=== PATIENT | male | born 1945 | race Two or more races ===

== ENCOUNTER 2020-07-16 13:00 | Outpatient (CLI) | payer MEDICARE, OTHER ==
[~2020-07-16] VITALS: Ht 160 cm; Wt 70.8 kg
[2020-07-16 12:52] VITALS: BP 126/71
--- NOTE | 2020-07-16 14:14 | Consultation ---
DATE OF CONSULTATION: 07/16/2020 GASTROENTEROLOGY CONSULTATION CONSULTING PHYSICIAN: Gomez Bee MD. CHIEF COMPLAINT: Abdominal pain. HISTORY OF PRESENT ILLNESS: This is a very pleasant 75-year-old male, who was referred to us by Dr. Barrett, for evaluation of abdominal pain. According to the family, the patient was recently diagnosed with kind of colorectal cancer, was getting and was referred today. I cannot see any records of cancer in my chart. The patient was admitted to [facility] in April 2020, which we got a clear copy of it when the patient was admitted for chest pain, diarrhea, cough, and abdominal pain. He had a CT of the abdomen and pelvis done at that time showed evidence of hiatal hernia, but no evidence of any active cause for abdominal pain. PAST MEDICAL HISTORY: Significant for: 1. History of hyperlipidemia. 2. Questionable diagnosis of colorectal cancer for which he is getting radiation now. ALLERGIES: No known drug allergies. MEDICATIONS: Please see medication reconciliation list. SOCIAL HISTORY: The patient denies any recent tobacco, alcohol, or drug abuse. FAMILY HISTORY: Noncontributory. PHYSICAL EXAMINATION: VITAL SIGNS: Temperature is 98.2, blood pressure is 122/71, pulse , respirations 20. HEENT: Normocephalic and atraumatic. Sclerae anicteric. NECK: Supple. No evidence of obvious lymphadenopathy. CARDIOVASCULAR: Regular rate and rhythm. Plus S1, S2. LUNGS: Clear to auscultation bilaterally. ABDOMEN: Positive bowel sounds. Soft and nontender. No rebound. No guarding. No peritoneal sign. EXTREMITIES: No cyanosis, no clubbing, no edema. ASSESSMENT AND PLAN: This is a 75-year-old male with complaint of epigastric/right upper quadrant abdominal pain, some mild constipation, going for radiation for possible colorectal cancer by Dr. Barrett. Plan will be to start the patient on omeprazole 40 mg p.o. every morning and also MiraLAX 17 g at bedtime. The patient to complete the radiation and come back for further followup. Meanwhile, we are going to try to obtain records from Dr. Barrett's office to see the exact type of cancer he is having. CT was reviewed. There is no acute finding in terms of possible epigastric abdominal pain, except for hiatal hernia. The patient was seen by the family at the bedside and the plans were explained to them. I want to thank Dr. Chantel Barrett, for this kind referral. Gomez Bee M.D. DR: ABDIEL JOB#: [id number] CC: Chantel Barrett MD.; Fax#: [phone]
== END 2020-07-16 15:00 | disposition home or self-care (01) ==
LOC: PAN 13:00
DX: R10.13 Epigastric pain (principal); E78.5 Hyperlipidemia, unspecified
CPT/HCPCS: 99212